=== PATIENT | male | born 1980 | race Asian ===

== ENCOUNTER 2022-01-27 07:35 | Outpatient (CLI) | payer OTHER, SELFPAY ==
--- NOTE | 2022-02-08 18:02 | WPDHOMESLEEP ---
Sleep Study - Home Unattended Date of Study: 01/27/22 Ordering Provider: Josefina Mcarthur NP Interpreting Provider: Dona Lundberg, DO Home Sleep Study Type: Watch PAT Height: 1.63 m Weight: 88.451 kg Body Mass Index: 33.5 Neck Circumference (inches): 17 [place]: 8 Reason for Sleep Study Daytime hypersomnia Sleep History The patient is a 41-year-old male with hypertension, type 2 diabetes, GERD, seasonal allergies and obesity that had a sleep study ordered by his primary care for evaluation of sleep apnea. He rarely awakens from sleep short of breath. He occasionally awakens at night with heartburn, belching or cough. He frequently snores loud enough that others complain. He occasionally has trouble sleeping when he has a cold. He denies waking up gasping for air throughout the night. He occasionally has breathing problems at night observed by himself or others. He rarely sweats excessively at night. He occasionally has heart palpitations or irregular heartbeats during the night. He occasionally falls asleep during the day but never while driving. He denies sleep paralysis and cataplexy. He rarely has trouble at school or work due to sleepiness. He rarely experiences vivid dreamlike scenes upon awakening or falling asleep. He denies feeling afraid of going to sleep. He rarely has nightmares. He occasionally remembers his dreams. He rarely has thoughts racing through his mind. He denies feeling sad, depressed or anxious. He rarely has muscular tension. He rarely notices parts of his body jerk. He rarely kicks during the night. He denies having crawling and aching feelings in his legs as well as leg pain during the night. He he rarely grinds his teeth during sleep but never awakens with a morning jaw pain. He is rarely bothered by pain during the day and rarely awakened by pain during the night. He rarely wakes up feeling stiff in the morning. He rarely wakes up with sore or achy muscles. He rarely wakes up with pain in the neck, spine or other joints. He will stay in bed for 5-10 minutes after waking up in the morning. He currently lives with his and 3 children. He does not consume any caffeinated beverages within 2 hours of bedtime. He does not engage in physical exercise before bedtime. He will watch television before falling asleep. He denies taking naps in the afternoon or the evening. He will drink 1 caffeinated beverage per day. He denies tobacco, alcohol and recreational drug use. [facility] Past Medical History Medical History BMI 33.0-33.9,adult Diabetes Encounter to establish care Fatigue History of COVID-19 Hyperlipidemia Rash Screening for diabetes mellitus Snoring Witnessed episode of apnea Family History Family History Father Alcoholism Cerebrovascular accident Mother Cancer Diabetes mellitus Sibling Diabetes mellitus Hypertension Social History Social History Smoking status: Never smoker Alcohol intake: current Alcohol use details: 4 drinks monthly but rare, hard alcohol Substance use: never Substance use type: does not use Medications Home Medications Medication Instructions Recorded Confirmed Type clotrimazole-betamethasone 1 1 applic topical BID 2 weeks #15 12/03/21 12/03/21 Rx %-0.05 % topical cream grams blood sugar diagnostic (Blood #100 ea 12/14/21 Rx Glucose Test strips) blood-glucose meter #1 ea 12/14/21 Rx empagliflozin 10 mg tablet 10 mg PO QAM #30 tabs 12/14/21 Rx (Jardiance) lancets (Accu-Chek Softclix #100 ea 12/14/21 Rx Lancets) Sleep Procedure The sleep study was completed using [employer]T a technically adequate device with seven channels: peripheral arterial tone, actigraphy, body position, snore, respiratory movement, pulse oximetry, sleep staging
[2022-02-08 18:14] VITALS: BMI 33.5
--- NOTE | 2022-05-25 16:03 | SLEEP ---
[id number] scheduled 06/08
== END 2022-02-01 11:52 | disposition home or self-care (01) ==
LOC: ANHCSM 07:36
PROVIDERS: PCP Nurse Practitioner Family; Visit Provider Nurse Practitioner Family
DX: G47.33 Obstructive sleep apnea (adult) (pediatric) (principal); G47.10 Hypersomnia, unspecified
CPT/HCPCS: 95800

== ENCOUNTER 2022-05-02 13:20 | Outpatient (CLI) | payer OTHER, SELFPAY ==
--- NOTE | 2022-05-02 13:24 | ECG_ITS ---
Measurements Intervals [place] Rate: 94 P: 66 NV: 152 QRS: 28 QRSD: 86 T: 4 QT: 350 QTc: 440 Interpretive Statements SINUS RHYTHM NORMAL ECG NO PREVIOUS ECG AVAILABLE FOR COMPARISON Electronically Signed On 05-02-2022 16:23:55 HEAD OF PARTNER DEVELOPMENT by Agustin Carrera M.D.
== END 2022-05-02 13:21 | disposition home or self-care (01) ==
LOC: ANHCARD 13:22
PROVIDERS: PCP Nurse Practitioner Family; Visit Provider Nurse Practitioner Family
DX: R07.9 Chest pain, unspecified (principal)
CPT/HCPCS: 93005

== ENCOUNTER 2022-05-10 09:37 | Outpatient (CLI) | payer OTHER, SELFPAY ==
--- NOTE | 2022-05-10 10:07 | EST_ITS ---
Patient Info Name: Jadon Morales Age: 41 years : 1980 Gender: Male Ht: 64 in Wt: 200 lbs BSA: 2.06 m2 HR: 86 bpm BP: 131 / 98 mmHg Heart Rhythm: Sinus Rhythm Exam Date: 05/10/2022 10:16 AM Exam Location: [facility] Patient Status: Outpatient Admit Date: 05/10/2022 Staff Ordering Physician: Josefina Mcarthur NP Attending Provider: Josefina Mcarthur NP Exercise Technologist: Lyssa Heath CT Exercise Physician: Wisam Gale DO Exam Type: CA stress test treadmill Study Info Indications R07.9 - Chest pain, unspecified A treadmill exercise stress test was performed. Summary 1. 1. Negative Yasir exercise stress test for ischemic ST changes by ECG criteria. 2. 2. Good functional capacity, achieving 11. 8 METs of workload. 3. 3. Appropriate HR response to exercise. 4. 4. Appropriate HR recovery at 1 minute post exercise. 5. 5. No imaging with stress testing. 6. 6. Patient informed of the above results. Protocol: [facility] ECG Details Stage: REST Duration (min): 2 min : 19 sec Speed (mph): 0.0 Grade (%): 0 HR (bpm): 85 SBP (mmHg): 131 DBP (mmHg): 98 METS: --- Stage: REST Duration (min): 4 min : 47 sec Speed (mph): 0.0 Grade (%): 0 HR (bpm): 87 SBP (mmHg): 131 DBP (mmHg): 98 METS: --- Stage: STAGE 1 Duration (min): 1 min : 0 sec Speed (mph): 1.7 Grade (%): 10 HR (bpm): 101 SBP (mmHg): 131 DBP (mmHg): 98 METS: --- Stage: STAGE 1 Duration (min): 2 min : 0 sec Speed (mph): 1.7 Grade (%): 10 HR (bpm): 104 SBP (mmHg): 131 DBP (mmHg): 98 METS: --- Stage: STAGE 1 Duration (min): 3 min : 0 sec Speed (mph): 1.7 Grade (%): 10 HR (bpm): 104 SBP (mmHg): 129 DBP (mmHg): 95 METS: --- Stage: STAGE 2 Duration (min): 1 min : 0 sec Speed (mph): 2.5 Grade (%): 12 HR (bpm): 111 SBP (mmHg): 129 DBP (mmHg): 95 METS: --- Stage: STAGE 2 Duration (min): 2 min : 0 sec Speed (mph): 2.5 Grade (%): 12 HR (bpm): 115 SBP (mmHg): 141 DBP (mmHg): 74 METS: --- Stage: STAGE 2 Duration (min): 3 min : 0 sec Speed (mph): 2.5 Grade (%): 12 HR (bpm): 117 SBP (mmHg): 141 DBP (mmHg): 74 METS: --- Stage: STAGE 3 Duration (min): 1 min : 0 sec Speed (mph): 3.4 Grade (%): 14 HR (bpm): 128 SBP (mmHg): 166 DBP (mmHg): 78 METS: --- Stage: STAGE 3 Duration (min): 2 min : 0 sec Speed (mph): 3.4 Grade (%): 14 HR (bpm): 136 SBP (mmHg): 166 DBP (mmHg): 78 METS: --- Stage: STAGE 3 Duration (min): 3 min : 0 sec Speed (mph): 3.4 Grade (%): 14 HR (bpm): 143 SBP (mmHg): 189 DBP (mmHg): 91 METS: --- Stage: STAGE 4 Duration (min): 0 min : 54 sec Speed (mph): 4.2 Grade (%): 16 HR (bpm): 158 SBP (mmHg): 189 DBP (mmHg): 91 METS: ---
== END 2022-05-10 09:38 | disposition home or self-care (01) ==
LOC: ANHCARD 09:39
PROVIDERS: PCP Nurse Practitioner Family; Visit Provider Nurse Practitioner Family
DX: R07.9 Chest pain, unspecified (principal); R00.2 Palpitations
CPT/HCPCS: 93017

== ENCOUNTER 2022-05-26 10:35 | Outpatient (CLI) | payer OTHER, SELFPAY ==
--- NOTE | 2022-05-30 16:07 | WPDHOLTEREM ---
Holter/Event Monitor Holter/Event Monitor Date of procedure: 05/26/22 Holter/Event Procedure: 24 Hr Holter Monitor Indications: Chest pain Conclusion: 1. 24 hour holter monitor on 05/26/22. 2. Underlying rhythm is sinus rhythm. HR range 61-118 bpm; average HR 85 bpm. 3. There is 1 premature supraventricular complex. No supraventricular tachycardia. 4. No premature ventricular complex. No ventricular tachycardia. 5. No sinoatrial or atrioventricular blocks. No significant pauses greater than 2 seconds. 6. No symptoms available for correlation.
== END 2022-05-26 10:36 | disposition home or self-care (01) ==
PROVIDERS: PCP Nurse Practitioner Family; Visit Provider Family Medicine
DX: R07.9 Chest pain, unspecified (principal); R00.2 Palpitations
CPT/HCPCS: 93225; 93226

== ENCOUNTER → 2022-06-01 15:55 | Outpatient (CLI) | payer OTHER, SELFPAY ==
--- NOTE | ~2022-06-01 | XR_ITS ---
XR hand LT min 3V DATE: 06/01/2022 16:31 INDICATION: Left hand pain TECHNIQUE: 3 views COMPARISON: None FINDINGS: Old healed fracture deformity of the fourth metacarpal shaft. No recent fracture or dislocation, periosteal reaction or bone destruction. No erosive change is note d. Joint spaces are preserved. No chondrocalcinosis. Bone island of distal radial metaphysis. IMPRESSION: Old healed fourth metacarpal shaft fracture No recent fracture or dislocation Reviewed, dictated and finalized at location B. SPECIALIST
--- NOTE | ~2022-06-01 | XR_ITS ---
XR_CERV2-3V_CR DATE: 06/01/2022 16:31 INDICATION: Neck pain TECHNIQUE: AP, open-mouth, lateral, swimmer views COMPARISON: None FINDINGS: There is reversal of cervical curvature which may be due to muscle spasm. C1 and C2 are normally aligned and the odontoid process is intact. No fracture or dislocation or lock ed facet or prevertebral soft tissue swelling. Cervical interspaces are relatively preserved. There is uncovertebral joint spurring at C5-6 and C6-7, most prominent on the left at C5-6, encroachi ng upon the left C6 neural foramen. IMPRESSION: Reversal cervical curvature which may be due to muscle spasm Mild cervical spondylosis Reviewed, dictated and finalized at Location [facility]. Reviewed, dictated and finalized at location B. L PARTS ASSEMBLER
== END ==
PROVIDERS: PCP Nurse Practitioner Family; Visit Provider Nurse Practitioner Family
DX: M79.642 Pain in left hand (principal); M47.22 Other spondylosis with radiculopathy, cervical region
CPT/HCPCS: 72040; 73130

== ENCOUNTER 2022-06-08 08:10 | Outpatient (CLI) | payer OTHER, SELFPAY ==
--- NOTE | 2022-07-04 11:06 | WPDSLEEPSTUD ---
Sleep Study Date of Study: 06/08/22 Ordering Provider: Josefina Mcarthur NP Interpreting Physician: Dona Lundberg DO Sleep Study Type: CPAP Titration Height: 1.63 m Weight: 90.718 kg Body Mass Index: 34.3 Neck Circumference (inches): 18.5 [place]: 4 Reason for Sleep Study The patient had a WatchPAT on 01/27/2022 that showed an overall AHI of 36.5, CLAUDE of 8.6 and 14.1% of TST in [employer]. Sleep History The patient is a 41-year-old male with hypertension, type 2 diabetes, GERD, seasonal allergies and obesity that had a sleep study ordered by his primary care for evaluation of sleep apnea.? He rarely awakens from sleep short of breath.? He occasionally awakens at night with heartburn, belching or cough.? He frequently snores loud enough that others complain.? He occasionally has trouble sleeping when he has a cold.? He denies waking up gasping for air throughout the night.? He occasionally has breathing problems at night observed by himself or others.? He rarely sweats excessively at night.? He occasionally has heart palpitations or irregular heartbeats during the night.? He occasionally falls asleep during the day but never while driving.? He denies sleep paralysis and cataplexy.? He rarely has trouble at school or work due to sleepiness.? He rarely experiences vivid dreamlike scenes upon awakening or falling asleep.? He denies feeling afraid of going to sleep.? He rarely has nightmares.? He occasionally remembers his dreams.? He rarely has thoughts racing through his mind.? He denies feeling sad, depressed or anxious.? He rarely has muscular tension.? He rarely notices parts of his body jerk.? He rarely kicks during the night.? He denies having crawling and aching feelings in his legs as well as leg pain during the night.? He he rarely grinds his teeth during sleep but never awakens with a morning jaw pain.? He is rarely bothered by pain during the day and rarely awakened by pain during the night.? He rarely wakes up feeling stiff in the morning.? He rarely wakes up with sore or achy muscles.? He rarely wakes up with pain in the neck, spine or other joints. He will stay in bed for 5-10 minutes after waking up in the morning.? He currently lives with his and 3 children.? He does not consume any caffeinated beverages within 2 hours of bedtime.? He does not engage in physical exercise before bedtime.? He will watch television before falling asleep.? He denies taking naps in the afternoon or the evening. He will drink 1 caffeinated beverage per day.? He denies tobacco, alcohol and recreational drug use. [facility] Past Medical History Medical History Altered bowel habits Bloating Blood in stool BMI 33.0-33.9,adult BMI 34.0-34.9,adult Chest pain Diabetes Encounter to establish care Fatigue Fluttering sensation of heart Hematochezia History of COVID-19 Hyperlipidemia Left hand pain Moderate major depression Neck pain Paresthesia Radiculopathy, cervical region Rash Screening for diabetes mellitus Snoring Witnessed episode of apnea Family History Family History Father Alcoholism Cerebrovascular accident Mother Cancer Diabetes mellitus Sibling Diabetes mellitus Hypertension Social History Social History Smoking status: Never smoker Alcohol intake: current Alcohol use details: 4 drinks monthly but rare, hard alcohol Substance use: never Substance use type: does not use Lack of Transportation: No Lack of Food: Never True Current Housing: I Have Housing Concerned About Future Housing: No Difficulty Paying Gas/Electric Bills: No Difficulty Paying for Meds: No Currently Unemployed: No Education: Bachelor's Degree Difficulty w/ Childcare or Family Care: No Medications Home Medications Medication Instructions Recorded Confirm
[2022-07-04 11:13] VITALS: BMI 34.3
== END 2022-06-09 08:56 | disposition home or self-care (01) ==
LOC: ANHCSM 08:11
PROVIDERS: PCP Nurse Practitioner Family; Visit Provider Nurse Practitioner Family
DX: G47.33 Obstructive sleep apnea (adult) (pediatric) (principal)
CPT/HCPCS: 95811

== ENCOUNTER 2022-07-28 09:45 | Outpatient (CLI) | payer OTHER, SELFPAY ==
--- NOTE | 2022-07-28 09:52 | ECHO_ITS ---
Patient Info Name: Jadon Morales Age: 41 years : 1980 Gender: Male Ht: 64 in Wt: 200 lbs BSA: 2.06 m2 HR: 94 bpm BP: 139 / 86 mmHg Heart Rhythm: Sinus Rhythm Technical Quality: Good Exam Date: 07/28/2022 9:59 AM Exam Location: [facility] Patient Status: Outpatient Admit Date: 07/28/2022 Staff Ordering Physician: Wisam Gale DO Sales Service Coordinator: Arcelia Bonilla RDCS Attending Provider: Wisam Gale DO Referring Physician: Baljinder FLORES; Exam Type: CA echo doppler color flow Study Info Indications R07.9 - Chest pain, unspecified Complete two-dimensional, color flow and Doppler transthoracic echocardiogram is performed. Summary 1. Complete two-dimensional, color flow and Doppler transthoracic echocardiogram is performed. 2. Left ventricular chamber dimension is normal. 3. Left ventricular systolic function is normal, estimated at 65-70%. 4. There is mild concentric increased left ventricular wall thickness. 5. The left ventricular diastolic function is grade II diastolic dysfunction. 6. E/e' 8 is minimally elevated. Left Ventricle E/e' 8 is minimally elevated. Left ventricular chamber dimension is normal. Left ventricular systolic function is normal, estimated at 65-70%. There is mild concentric increased left ventricular wall thickness. The left ventricular diastolic function is grade II diastolic dysfunction. Right Ventricle Right ventricular systolic function is normal and with normal TAPSE 1.9 cm. Right ventricular chamber dimension is normal. Left Atria Left atrial chamber dimension is normal. Right Atria Right atrial chamber dimension is normal. Aortic Valve The aortic valve is trileaflet. There is no aortic valve stenosis. There is no aortic valve regurgitation. Pulmonic Valve There is no pulmonic regurgitation. Mitral Valve There is no mitral valve stenosis. There is no mitral valve regurgitation. Tricuspid Valve There is no tricuspid valve regurgitation. Pericardium/Pleural There is no pericardial effusion. Inferior Vena Cava Normal inferior vena cava with >50% collapse upon inspiration consistent with normal right atrial pressure, 5 mmHg. Aorta The aortic root size at the sinus of Valsalva is normal. Left Ventricular Outflow Tract Name Value Normal LVOT 2D LVOT Diameter 1.9 cm LVOT Doppler LVOT Peak Gradient 3 mmHg LVOT Mean Gradient 2 mmHg LVOT VTI 16 cm LVOT VTI/AV VTI Ratio 0.7 LVOT Stroke Volume 46 ml LVOT CO 3.7 l/min LVOT CI 1.8 l/min/m2 Pulmonic Valve Name Value Normal RVOT Doppler RVOT Peak Gradient 1 mmHg PV Doppler PV Peak Gradient 3 mmHg Mitral Valve ------
== END 2022-07-28 09:46 | disposition home or self-care (01) ==
LOC: ANHCARD 09:46
PROVIDERS: PCP Nurse Practitioner Family; Visit Provider Internal Medicine Cardiovascular Disease
DX: R07.9 Chest pain, unspecified (principal)
CPT/HCPCS: 93306

== ENCOUNTER 2022-12-28 00:43 | Day surgery (SDC) | payer OTHER, SELFPAY ==
[2022-12-14 14:31] VITALS: BMI 34.9
[2022-12-28 09:47] VITALS: BP 138/87; PULSE 91; RESP 16; TEMP 36; O2SAT 99; BMI 34.0
[2022-12-28] MEDS: LACTATED RINGERS 1,000 ML 150 ML IV CONT (10:03)
[2022-12-28 10:05] LABS: Glucose Point of Care 194 mg/dl (65-105)
--- NOTE | 2022-12-28 10:38 | WPDANESEPPF ---
Anes - Initial Pre Proc Eval Procedure: Operation Date: 12/28/22 11:00 Proposed Procedures p Esophagogastroduodenoscopy & Colonoscopy - Edgar Augustin MD Date/Time: 12/28/22 10:38 Surgeon: Edgar Augustin MD Pre Op Diagnosis: GERD, change in bowel habits Patient Data Age: 42 Gender: M Height: 1.63 m Weight: 90.1 kg Last Vital Signs Temp 96.8 F L 12/28/22 09:47 Pulse 91 12/28/22 09:47 Resp 16 12/28/22 09:47 BP 138/87 12/28/22 09:47 Pulse Ox 99 12/28/22 09:47 O2 Del Method Room Air 12/28/22 09:47 Allergies Allergy/AdvReac Type Severity Reaction Status Date / Time No Known Allergies Allergy Unknown Verified 12/28/22 09:46 Home Medications Medication Instructions Recorded Confirmed Type blood sugar diagnostic (Blood #100 ea 12/14/21 12/28/22 Rx Glucose Test strips) blood-glucose meter #1 ea 12/14/21 12/28/22 Rx lancets (Accu-Chek Softclix #100 ea 12/14/21 12/28/22 Rx Lancets) empagliflozin 25 mg tablet 25 mg PO DAILY #90 tabs 07/01/22 12/28/22 Rx (Jardiance) pravastatin 20 mg tablet 20 mg PO DAILY #90 tabs 11/07/22 12/28/22 Rx Laboratory Tests 12/28/22 09:58 POC Capillary Glucose 194 H mg/dl (65-105) Patient hx anesthesia problems: none Family hx anesthesia problems: none Results Review: All pre-operative results and documents have been reviewed as part of the pre-operative evaluation. [facility] Past Medical History Medical History (Updated 12/05/22 @ 09:16 by KENDELL Lal) Altered bowel habits Bloating Blood in stool BMI 33.0-33.9,adult BMI 34.0-34.9,adult Chest pain Diabetes Dry skin Encounter to establish care Fatigue Fluttering sensation of heart GERD (gastroesophageal reflux disease) Hematochezia History of COVID-19 Hyperlipidemia Left hand pain Moderate major depression Nasal bleeding Neck pain Paresthesia Radiculopathy, cervical region Rash Screening for diabetes mellitus Snoring Witnessed episode of apnea Family History Family History Father Alcoholism Cerebrovascular accident Mother Cancer Diabetes mellitus Sibling Diabetes mellitus Hypertension Social History Social History Smoking status: Never smoker Alcohol intake: current Alcohol use details: rarely Substance use: never Substance use type: does not use Lack of Transportation: No Lack of Food: Never True Current Housing: I Have Housing Concerned About Future Housing: No Difficulty Paying Gas/Electric Bills: No Difficulty Paying for Meds: No Currently Unemployed: No Education: Bachelor's Degree Difficulty w/ Childcare or Family Care: No Living arrangements: with family Spiritual care concerns: No Anes - Eval Final PreProcedure Day of Procedure 12/28/22 10:38 Patient weight: normal Heart: regular rate and rhythm Lungs: clear to auscultation Airway: Mallampati scale class II Neurological: alert and oriented Last oral intake: >/= 8 hours ASA classification: II Emergent: no Anesthetic plan: proceed Anesthesia type and monitoring: general GIVS and standard monitoring Results Review: All pre-operative results and documents have been reviewed as part of the pre-operative evaluation. Informed Consent: The patient's anesthetic plan and its attendant risks and benefits were discussed with the patient/family/POA. Questions were solicited and answers provided to the satisfaction of the patient/family/POA.
--- NOTE | 2022-12-28 10:53 | WPDHPUPDATE1 ---
History and Physical Update Update Date/Time: 12/28/22 10:53 History and Physical has been reviewed, including an updated exam of the patient. There are NO changes in the patient's condition. Risks, benefits, and alternatives have been discussed and questions answered. Patient agrees to proceed with procedure.
[2022-12-28 11:23] VITALS: BP 135/78; PULSE 90; RESP 21; O2SAT 97
[2022-12-28 11:33] VITALS: BP 136/88; PULSE 84; RESP 17; O2SAT 96
[2022-12-28 11:43] VITALS: BP 152/106; PULSE 83; RESP 19; O2SAT 100
== END 2022-12-28 11:53 | disposition home or self-care (01) ==
PROVIDERS: PCP Nurse Practitioner Family; Visit Provider Internal Medicine Gastroenterology
PROC: 0DJ08ZZ Inspection of Upper Intestinal Tract, Via Natural or Artificial Opening Endoscopic (ICD-10-PCS; CPT 43235; principal; 2022-12-28 11:00)
DX: K29.50 Unspecified chronic gastritis without bleeding (principal); E11.9 Type 2 diabetes mellitus without complications; K21.9 Gastro-esophageal reflux disease without esophagitis; E78.5 Hyperlipidemia, unspecified; F32.1 Major depressive disorder, single episode, moderate; Z79.84 Long term (current) use of oral hypoglycemic drugs
CPT/HCPCS: 45378; 43239; 82948; 88305; J2704; J7120